=== PATIENT | male | born 1935 | race Caucasian/White ===

== ENCOUNTER 2016-02-17 16:00 | Emergency (ER) | payer MEDICARE ==
[2016-02-17 16:36] VITALS: BP 150/75
--- NOTE | 2016-02-17 17:01 | UC ---
Neck Pain HPI - HPI Summary HPI Summary: 3 weeks of right sided neck pain. Started when he turned in bed, felt it pull/ tear. PRogressive pain after a few days. Now it hurts a lot to turn to right. Can't sleep comfortably. No fever. No vomiting. No other injuries. No prior neck arthritis or pain. OTC meds not helping. Heat and Icy Hot rubs help. Recent URI, coughing a lot which hurts neck - History of Current Complaint Chief Complaint: UCUpperExtremity Stated Complaint: NECK PAIN Time Seen by Provider: 02/17/16 16:36 Hx Obtained From: Patient, Family/Private [employer] Safe Timing: Constant Onset/Duration: Gradual Onset, Lasting Weeks - 3 Severity: Mild Location: Discrete At: - right neck post Character: Dull, Aching, Stiff Aggravating Factors: Position - turning to right Alleviating Factors: Heat Associated Signs & Symptoms: Negative: Swelling, Redness, Bruising, Fever, Nuchal Rigity, Weakness, Headache - Risk Factors Meningitis Risk Factors: Negative Risk Factors For Cervical Spine Injury: Posterior Midline Cervical Spine Tenderness - Allergies/Home Medications Allergies/Adverse Reactions: Allergies Allergy/AdvReac Type Severity Reaction Status Date / Time No Known Allergies Allergy Verified 02/10/16 10:38 PMH/Surg Hx/FS Hx/Imm Hx Previously Healthy: Yes - Surgical History Surgical History: None - Family History Known Family History: Positive: Hypertension - Social History Occupation: Retired Lives: With Family Alcohol Use: None Substance Use Type: None Smoking Status (MU): Never Smoked Tobacco Review Of Systems Constitutional: Positive: Negative Skin: Positive: Negative Eyes: Positive: Negative ENT: Positive: Negative Respiratory: Positive: Negative Cardiovascular: Positive: Negative Gastrointestinal: Positive: Negative Genitourinary: Positive: Negative Musculoskeletal: Positive: Decreased ROM - neck Neurological: Positive: Negative. Negative: Headache, Weakness, Paresthesia, Numbness Psychological: Positive: Negative All Other Systems Reviewed And Are Negative: Yes Physical Exam Triage Information Reviewed: Yes Appearance: Well-Appearing, No Pain Distress, Well-Nourished Vital Signs: Initial Vital Signs Temp 97.9 F 02/17/16 16:29 Pulse 76 02/17/16 16:29 Resp 16 02/17/16 16:29 BP 150/75 02/17/16 16:29 Pulse Ox 99 02/17/16 16:29 Vital Signs Reviewed: Yes Eye Exam: Normal ENT Exam: Normal Neck: Positive: Other: - tenderness and spasm of right trapezius. Hurts to turn to the right Respiratory Exam: Normal Cardiovascular Exam: Normal Musculoskeletal Exam: Other - as above Neurological Exam: Normal Psychological Exam: Normal Skin Exam: Normal Neck Pain Course/Dx - Differential Dx/Diagnosis Differential Dx/HQI/PQRI: Dystonia, Strain, Torticollis Provider Diagnoses: torticollis Discharge - Discharge Plan Condition: Stable Disposition: HOME Prescriptions: Diazepam TAB(*) [Valium TAB(*)] 10 mg PO BEDTIME PRN #10 tab MDD 10mg PRN Reason: neck pain/stiffness Patient Education Materials: Spasmodic Torticollis (ED) Referrals: Sheron Katz NP [Nurse Practitioner] - Sebastian Benjamin DO [Primary Care Provider] - Additional Instructions: [facility], [address] [place] [address] [phone] or try Sheron Katz, Nurse Practitioner
== END 2016-02-17 17:38 | disposition home or self-care (01) ==
LOC: UCCORT 16:00
DX: M43.6 Torticollis (principal)
CPT/HCPCS: 99212; G0463

== ENCOUNTER 2018-08-17 14:48 | Emergency (ER) | payer MEDICARE ==
[2018-08-17 15:06] VITALS: BP 144/81
[2018-08-17] MEDS ORDERED: Tetracaine 0.5% OPTH.SOL 4 ML* 1 DROP BTL RIGHT EYE ONE (15:16)
--- NOTE | 2018-08-17 15:16 | UC ---
Eye Complaint HPI - HPI Summary HPI Summary: R eye discomfort after pt. was sand-blasting a wheel and forgot to put on safety glasses. He states it feels like something is in there. denies pain w/ movement, rojas, vision changes. - History of Current Complaint Chief Complaint: UCEye Stated Complaint: RT EYE COMPLAINT Time Seen by Provider: 08/17/18 15:03 Hx Obtained From: Patient Pain Intensity: 0 Pain Scale Used: 0-10 Numeric Aggravating Factor(s): Nothing Alleviating Factor(s): Nothing Associated Signs And Symptoms: Negative: Photophobia, Vision Impairment Bilateral, Fever, Swelling - Allergies/Home Medications Allergies/Adverse Reactions: Allergies Allergy/AdvReac Type Severity Reaction Status Date / Time No Known Allergies Allergy Verified 08/17/18 15:06 Home Medications: Home Medications Multivit-Min/FA/Lycopen/Lutein [Centrum Silver Men Tablet] 1 tab PO DAILY [History Confirmed 08/17/18] PMH/Surg Hx/FS Hx/Imm Hx - Additional Past Medical History Additional PMH: no chronic issues. Previously Healthy: Yes - Surgical History Surgical History: None - Family History Known Family History: Positive: Hypertension - Social History Alcohol Use: Occasionally Substance Use Type: None Smoking Status (MU): Never Smoked Tobacco Review of Systems All Other Systems Reviewed And Are Negative: Yes Constitutional: Negative: Fever Skin: Negative: Rash Eyes: Positive: Other - R eye discomfort. Negative: Blurred Vision, Drainage, Eye Redness, Photophobia Respiratory: Positive: Negative Cardiovascular: Positive: Negative Physical Exam Triage Information Reviewed: Yes Appearance: Well-Appearing Vital Signs: Initial Vital Signs Temp 98.6 F 08/17/18 15:02 Pulse 79 08/17/18 15:02 Resp 18 08/17/18 15:02 BP 144/81 08/17/18 15:02 Pulse Ox 99 08/17/18 15:02 Vital Signs Reviewed: Yes Eyes: Positive: Conjunctiva Clear, Other: - No flourescein collection in R eye, no FB noted. after tetracaine use was able to flush. eye lids unremarkable. Negative: Conjunctiva Inflamed Eye Complaint Course/Dx - Course Course Of Treatment: R eye discomfort after not using safety glasses while sandblasting. NO abrasion noted in R eye and we were able to flush eye after use of tetracaine, fluoroscein. NO visual impairment or involvement of the lids. He does have an eye doctor that he has f/u planned w/. vitals are good and if there was an FB the hope is that it was flushed during exam. - Differential Dx/Diagnosis Differential Diagnosis/HQI/PQRI: Conjunctivitis, Corneal Abrasion, Other Provider Diagnosis: Discomfort of right eye Discharge - Sign-Out/Discharge Documenting (check all that apply): Patient Departure All imaging exams completed and their final reports reviewed: No Studies - Discharge Plan Condition: Good Disposition: HOME Prescriptions: Erythromycin OPTH OINT* [Erythromycin 0.5% OPTH OINT*] 1 applic RIGHT EYE TID 7 Days #1 ophth.oint Patient Education Materials: Eye Pain (ED) Referrals: Mars Valdez MD [Primary Care Provider] - Additional Instructions: Please see your regular eye doctor Dr. White in 1-2 days for follow up. I did not see an abrasion but am treating in case there is a microscopic one in your R eye. We flushed it as well to ensure there is no foreign body. - Billing Disposition and Condition Condition: GOOD Disposition: Home
[2018-08-17] MEDS ORDERED: Fluorescein Sodium TOPICAL* 1 MG TEST STRIP OPHTHALMIC ONE (15:20)
== END 2018-08-17 15:42 | disposition home or self-care (01) ==
LOC: UCCORT 14:48
DX: H57.89 Other specified disorders of eye and adnexa (principal)
CPT/HCPCS: 99212; A9270-GY; G0463